=== PATIENT | male | born 1955 | race Caucasian/White ===

== ENCOUNTER 2020-02-17 15:35 | Emergency (ER) | payer BC, SELFPAY ==
[2020-02-17 15:37] VITALS: BP 111/96; PULSE 107; RESP 24; TEMP 36.8; O2SAT 97; BMI 31.0
--- NOTE | 2020-02-17 15:53 | ED.DCSUM_ITS ---
History of Present Illness Chief Complaint: Allergic Reaction Informant: Patient, Family Onset: Today Narrative: Patient states that approximately 20 minutes prior to arrival he was stung on the posterior aspect of the right thigh by a wasp. He states that he is deathl y allergic. He states that 40 years ago he was stung by a wasp and that his body stiffened up. He states he is breaking out in hives and his joints feel stiff. He feels very anxious. He denies any facial swelling or tongue swelling. No lip swelling. He states he feels short of breath but is still able to speak in sentences. Past Medical History - Allergies and Home Meds Allergies/Adverse Reactions: Allergies bee venom protein (honey bee) Allergy (Verified 02/17/20 15:37) Anaphylaxis Primary Care Physician: NOT,DEFINED [NON-STAFF] - Smoking Status: Current some day smoker Review of Systems General: Denies: Chills, Fever, Sweats Eyes: Denies: Visual changes - bilaterally, Diplopia ENT: Denies: Rhinorrhea, Sore throat Cardiovascular: Denies: Chest pain, Palpitations Respiratory: Reports: Dyspnea. Denies: Cough, Dyspnea on exertion Gastrointestinal: Denies: Abdominal pain, Nausea, Vomiting, Diarrhea, Melena, Hematochezia Genitourinary: Denies: Dysuria, Hematuria, Frequency Musculoskeletal: Denies: Back pain, Extremity Pain Skin: Reports: - - There is local erythema and hives to the posterior aspect of the right thigh. I do not see a stinger.. Denies: Rash, Wounds Neurological: Denies: Headache, Weakness, Numbness Physical Exam Vital Signs/Narrative: Vital Signs Temp Pulse Resp BP Pulse Ox 02/17/20 15:37 98.2 F 107 H 24 H 111/96 H 97 Inital Vital Signs reviewed: Yes General: Well nourished, Well developed, No Acute Distress Head: Normocephalic, Atraumatic Eyes: Perrl, EOMI ENT: Moist mucous membranes, No rhinorrhea Neck: Supple, Nontender Cardiovascular: Regular rate, Regular rhythm, No murmurs Respiratory: CTA bilaterally, Chest nontender, - - Patient appears tachypneic but his lung sounds are clear and oxygen saturation is normal Abdomen: Soft, Nontender, Nondistended, Normal bowel sounds Back: Nontender, Normal Inspection Extremities: Nontender, No edema, - - There is apparent hives to the posterior aspect of the right thigh. No obvious stinger in place. Skin: Normal color, No rash Neurological: Alert, Oriented x3, Cranial nerves II-XII grossly intact, Normal Strength, Normal Sensation Psychological: - - The patient appears anxious Diagnostic/Tx/Re-eval - Medical Decision Making Patient received Pepcid, Benadryl, Solu-Medrol and epinephrine. The patient apparently eloped from the emergency department after observation time of about 1-1/2 hours. Therefore I was not able to give him prescription for EpiPen or any instructions for home care ED Disposition - Plan for ED Patient: Disposition: Home or Assisted Living Diagnosis: Hymenoptera reaction Instructions: ED BEE STING General Allergic Rxn
[2020-02-17] MEDS: DiphenhydrAMINE 50 MG/ML Syringe IV (16:07)
[2020-02-17] MEDS: MethylPREDNISolone 125 MG/2 ML Vial IV (16:07)
[2020-02-17] MEDS: Famotidine 200 MG/20 ML MDV 20 MG in 0.9% Normal Saline (Pres. free 8 ML 300 MG IV (16:07)
--- NOTE | 2020-02-17 17:17 | ED.RN ---
pt decided he didn't want to stay anymore and was leaving. iv was removed and pt eloped. physician notified
== END 2020-02-17 17:28 | disposition home or self-care (01) ==
PROVIDERS: Emergency Provider Emergency Medicine
DX: T63.461A Toxic effect of venom of wasps, accidental (unintentional), initial encounter (principal); L50.9 Urticaria, unspecified; F17.200 Nicotine dependence, unspecified, uncomplicated
CPT/HCPCS: 96372; 96374; 96375; 99283; A4216; J3490